=== PATIENT | male | born 2000 | race Caucasian/White ===

== ENCOUNTER 2025-06-10 13:16 | Emergency (ER) | payer SELFPAY ==
--- NOTE | 2025-06-10 13:27 | ED.C_ITS ---
HPI - Psych General: Chief Complaint: Psychiatric Symptoms Stated Complaint: mhe Time Seen by Provider: 06/10/25 13:24 History of Present Illness: 24-year-old man who presents emergency r oom with possible hallucinations. He says things do not sound right or real. He has no SI or HI. He is with a family member who he has come to stay with. No known psychiatric history. He does not take any psychiatric medications. No thoughts of suicide or homicide. Related Data Allergies Allergy/AdvReac Type Severity Reaction Status Date / Time No Known Allergies Allergy Verified 06/10/25 13:30 Review of Systems Narrative: Constitutional symptoms: Negative except as documented in HPI. Skin symptoms: Negative except as documented in HPI. Eye symptoms: Negative except as documented in HPI. ENMT symptoms: Negative except as documented in HPI. Respiratory symptoms: Negative except as documented in HPI. Cardiovascular symptoms: Negative except as documented in HPI. Gastrointestinal symptoms: Negative except as documented in HPI. Genitourinary symptoms: Negative except as documented in HPI. Musculoskeletal symptoms: Negative except as documented in HPI. Neurologic symptoms: Negative except as documented in HPI. Psychiatric symptoms: Negative except as documented in HPI. Endocrine symptoms: Negative except as documented in HPI. Physical Exam Narrative: EXAM NARRATIVE: General: Alert, no acute distress. Skin: Warm, dry. Head: Normocephalic, atraumatic. Neck: Supple, trachea midline. Eye: Extraocular movements are intact. Ears, nose, mouth and throat: mucosa moist. Cardiovascular: Regular, Normal peripheral perfusion. Respiratory: Lungs are clear to auscultation, respirations are non-labored, breath sounds are equal, Symmetrical chest wall expansion. Gastrointestinal: Soft, Nontender, Non distended Musculoskeletal: Normal ROM, no deformity. Neurological: Alert and oriented, No focal neurological deficit observed. Psychiatric: Cooperative, patient does have an odd affect and sometimes has trouble coming up with his words. He does tell me he is hearing things that do not sound real. Course Vital Signs: Vital signs: Vital Signs Temperature 98.1 F 06/10/25 13:28 Pulse Rate 103 H 06/10/25 14:05 Respiratory Rate 18 06/10/25 13:28 Blood Pressure 127/81 06/10/25 14:05 Pulse Oximetry 98 06/10/25 14:05 Oxygen Delivery Me thod Room Air 06/10/25 13:28 MDM - Psych Medical Decision Making Medical decision making Patient's reason for coming to the emergency room: Psychiatric concerns Social determinants: Patient is here with family. Unemployed. I reviewed the patient's medical record. No previous visits to this facility I reviewed the patient's current home meds He says he takes no psychiatric medications Alternate historians: None Differential diagnosis: including but not limited to and based on the above HPI, review of systems and physical exam: Patient is having possible auditory hallucinations. He does not feel that he needs to be admitted. They want to try the crisis center first. Assessment and plan: Possible hallucinations - Discharged home - Discussed plan with patient. Answered any questions. - Evaluation and treatment of this problem were appropriate in the emergency setting. No radiology studies performed this visit Discharge Plan Discharge Patient Disposition: Home Clinical Impression: Auditory hallucinations Condition: Stable Discharge Orders: Discharge ED (Routine); Ordered 06/10/25 Ordered By: Diandra Escobar Patient Instructions: Hallucinations (ED), Opioid Safety, Pain Management, Patient Portal & Walter Instructions Activity Restrictions/Additional Instructions: Please follow-up with the [facility] behavioral health crisis center immediately upon discharge. Phone number is [phone]. There is a 24-hour crisis hotline with the number of [phone]. Hours of operation are 8 AM to 6 PM. If you develop any suicidal or homicidal thoughts please seek medical attention immediately. Thank you for choosing [facility] for your healthcare needs today. Please realize this is an emergency room and that we are providing you with a medical screening exam and this may not be complete and all inclusive of all the testing and or work up that you may need to determine your ailment or severity of your illness. You have been screened and evaluated and felt safe for discharge. Health conditions do change or evolve sometimes and as such it is important that you follow up with your Primary Doctor to be re checked, 3-5 days is a general good time frame for follow up. You are always welcome to return to the ED for re assessment if your symptoms are worsening or you have new concerns Print Language: Korean Coding Level of Care Code ED Wic Site Coordinator for Samson Barraza
[2025-06-10 13:28] VITALS: BP 127/81; PULSE 118; RESP 18; TEMP 36.7; O2SAT 98; BMI 17.6
[2025-06-10 14:05] VITALS: BP 127/81; PULSE 103; O2SAT 98
== END 2025-06-10 14:07 | disposition home or self-care (01) ==
PROVIDERS: Emergency Provider Emergency Medicine
DX: R44.0 Auditory hallucinations (principal)
CPT/HCPCS: 99283

== ENCOUNTER 2025-06-10 17:30 | Inpatient (IN) | payer SELFPAY ==
[2025-06-10 17:33] VITALS: BP 134/88; PULSE 101; RESP 16; TEMP 36.7; O2SAT 98; BMI 17.6
[2025-06-10 18:09] LABS: Hematocrit 43.7 % (37-53); Hemoglobin 15.60 g/dL (11.27-16.99); Mean Corpuscular HGB Conc 35.7 g/dL (30-55); Mean Corpuscular Hemoglobin 30.5 pg (27-33); Mean Corpuscular Volume 85.5 fl (82-101); Nucleated Red Blood Cells % 0 %; Platelet Count 333 10^3/cmm (157-399); Red Blood Count 5.11 10^6/uL (3.85-5.65); White Blood Count 7.72 10^3/uL (3.29-11.43)
[2025-06-10 18:14] LABS: PCP Screen Urine Negative (Negative)
--- NOTE | 2025-06-10 18:32 | PC.NURSE ---
Pt was read his 96 hour rights at this time with security present
[2025-06-10 18:35] LABS: Acetaminophen < 5.0 ug/mL (10-30); Alanine Aminotransferase 18 U/L (0-41); Albumin Level 4.9 g/dL (3.5-5.2); Alcohol Level < 10 mg/dL (0-10); Alkaline Phosphatase 71 U/L (40-130); Anion Gap 18.4 (5-19); Aspartate Amino Transferase 14 U/L (0-40); Blood Urea Nitrogen 9 mg/dL (6-20); Calcium 9.6 mg/dL (8.5-10.5); Carbon Dioxide 21 mmol/L (22-29); Chloride 105 mmol/L (98-107); Globulin 2.4 g/dL (1.3-4.6); Glucose 113 mg/dL (65-115); Osmolality Calculated 291 mOsm/kg (285-295); Potassium 3.4 mmol/L (3.5-5.1); Salicylate < 0.3 mg/dL (3-10); Sodium 141 mmol/L (136-145); Total Protein 7.3 g/dL (6.6-8.7)
[2025-06-10 20:33] VITALS: BP 132/85; PULSE 88; O2SAT 99
--- NOTE | 2025-06-10 21:05 | W.ED.PSYCHS ---
Documented by User: AISHA Noonan 06/11/25 10:39 HPI - Psych General: Chief Complaint: Psychiatric Symptoms Stated Complaint: sent by [place] emergency department Time Seen by Provider: 06/10/25 17:38 Source: patient Mode of arrival: ambulatory Limitations: no limitations History of Present Illness: Patient is a 24-year-old male with no pertinent past medical history who was sent by [facility] for evaluation. He arrives with affidavits and 96-hour hold in place for reports of acute psychosis. He has been seen in the emergency department earlier today where he had been sent down to crisis center for evaluation, he has not been endorsing any SI HI, has been very pleasant and overall no complaints. They sent him back due to him talking to someone down there and reporting the symptoms where he has been essentially hearing voices that have been worsening, he has been sleeping less, and possibly he has been hypomanic. He does not take any medications he does note that he took an antihistamine but overall has never been seen by psychiatrist. This would have been his first visit with any therapist or psychiatrist by going to [facility]. Again he is denying any SI HI at this time, but he is very difficult to examine and get a history from secondary to needing multiple redirects for conversation, appears to be looking at the wall intermittently. He tells me that these auditory hallucinations have been increasing, distracting, and he feels that they are all around him. He does note that this has been increasing for some time. MD complaint: other (Acute psychosis, auditory hallucinations) Associated symptoms: Reports auditory hallucinations; Deny visual hallucinations, homicidal ideation or suicidal ideation Related Data Home Medications ?Medication ?Instructions ?Recorded ?Confirmed No Known Home Medications 06/10/25 06/10/25 Allergies Allergy/AdvReac Type Severity Reaction Status Date / Time Penicillins Allergy Unknown Verified 06/10/25 17:36 Review of Systems General: Reports: 10 or more systems reviewed and unremarkable except in HPI and below Const: Denies: fever(s), chills or fatigue Eyes: Denies: change in vision ENMT: Denies: throat pain, ear or mastoid pain or nasal discharge Card: Denies: chest pain, palpitations, swelling of feet/ankles or lightheadedness Resp: Denies: dyspnea, productive cough or wheezing GI: Denies: abdominal pain, nausea, vomiting, diarrhea or constipation : Denies: flank pain, difficulty urinating, dysuria or urinary frequency Musc: Denies: neck pain, back pain or joint pain Skin/Breast: Denies: rash Neuro: Denies: headache(s), numbness in extremities or weakness in extremities Psych: Reports: auditory hallucinations; Denies: visual hallucinations, tactile hallucinations, suicidal ideation or homicidal ideation Physical Exam Const: COMMON NORMALS: no acute distress, patient oriented x3 and no limitations GENERAL APPEARANCE: cooperative, comfortable and well developed ORIENTATION/CONSCIOUSNESS: Yes awake, Yes oriented to person, Yes oriented to place and Yes oriented to time HENMT: COMMON NORMALS: normocephalic, atraumatic and hearing grossly normal bilaterally HEAD & SCALP: normocephalic and atraumatic Eye: COMMON NORMALS: Equal, round and reactive pupils present, EOMs intact bilaterally and conjunctivae normal CONJUNCTIVA: Yes conjunctivae normal PUPIL: Yes Equal, round and reactive pupils present Resp: COMMON NORMALS: normal respiratory effort, No retractions, No use of accessory muscles and clear to auscultation bilaterally AUSCULTATION: clear to auscultation bilaterally Cardio: COMMON NORMALS: regular rate, regular rhythm, No clicks present (Cardio), No murmurs present (Cardio) and No rub (Cardio) RATE: regular rate RHYTHM: regular rhythm Extremity: COMMON NORMALS: normal to inspection, full ROM and capillary refill normal Neuro: COMMON NORMALS: patient oriented x3, moves all extremities, no focal motor deficits and no sensory deficits noted SENSORIUM/ORIENTATION: Yes oriented to person, Yes oriented to place and Yes oriented to time Psych: COMMON NORMALS: mental status grossly normal THOUGHT CONTENT: Yes Normal thought content present, No Suicidality present, No Homicidality present and Yes Hallucination(s) present auditory OTHER: Requiring multiple redirects to provide history, seems distracted and acknowledging nonexistent stigma Skin: COMMON NORMALS: no rashes or lesions noted GENERAL SKIN EXAM: no rashes or lesions noted Course Vital Signs: Vital signs: Vital Signs Temperature 97.7 F 06/10/25 22:05 Pulse Rate 92 06/11/25 06:00 Respiratory Rate 16 06/11/25 14:00 Blood Pressure 123/85 06/11/25 06:00 Pulse Oximetry 100 06/11/25 06:00 Oxygen Delivery Me thod Room Air 06/11/25 06:00 MDM - Psych Medical Decision Making Patient sent from [facility] with 96-hour paperwork and affidavits present due to symptoms of acute psychosis there, he is interviewed here, he is demonstrating signs of acute psychosis possible hypomania and will admit to neuropsychiatric unit to Dr. Cummings for further evaluation. He is not medicated and has no documented medical history of any psychiatric illness. Patient compliant, Dr. Lane to put in admit orders. Lab Data 06/10/25 17:58 06/10/25 17:58 Laboratory Results WBC 7.72 10^3/uL (3.29-11.43) 06/10/25 17:58 RBC 5.11 10^6/uL (3.85-5.65) 06/10/25 17:58 Hgb 15.60 g/dL (11.27-16.99) 06/10/25 17:58 Hct 43.7 % (37-53) 06/10/25 17:58 MCV 85.5 fl (82-101) 06/10/25 17:58 MCH 30.5 pg (27-33) 06/10/25 17:58 MCHC 35.7 g/dL (30-55) 06/10/25 17:58 RDW 12.1 % (12.1-15.1) 06/10/25 17:58 Plt Count 333 10^3/cmm (157-399) 06/10/25 17:58 MPV 9.4 fL (7.4-10.4) 06/10/25 17:58 Neut % (Auto) 68.3 % 06/10/25 17:58 Lymph % (Auto) 24.9 % 06/10/25 17:58 [place] % (Auto) 5.3 % 06/10/25 17:58 Eos % (Auto) 0.9 % 06/10/25 17:58 Baso % (Auto) 0.3 % 06/10/25 17:58 Neut # (Auto) 5.28 10^3/uL (1.8-7.7) 06/10/25 17:58 Lymph # (Auto) 1.9 10^3/uL (0.8-4.8) 06/10/25 17:58 [place] # (Auto) 0.4 10^3/uL (0.2-0.9) 06/10/25 17:58 Eos # (Auto) 0.1 10^3/uL (0.0-0.8) 06/10/25 17:58 Baso # (Auto) 0.0 10^3/uL (0.0-0.1) 06/10/25 17:58 Nucleated RBC % (auto) 0 % 06/10/25 17:58 Nucleated RBCs # 0.0 /100WBC 06/10/25 17:58 Sodium 141 mmol/L (136-145) 06/10/25 17:58 Potassium 3.4 mmol/L (3.5-5.1) L 06/10/25 17:58 Chloride 105 mmol/L (98-107) 06/10/25 17:58 Carbon Dioxide 21 mmol/L (22-29) L 06/10/25 17:58 Anion Gap 18.4 (5-19) 06/10/25 17:58 BUN 9 mg/dL (6-20) 06/10/25 17:58 Creatinine 0.7 mg/dL (0.7-1.2) 06/10/25 17:58 GFR Calculation 137.4 mL/min (90-130) H 06/10/25 17:58 Glucose 113 mg/dL (65-115) 06/10/25 17:58 Calculated Osmolality 291 mOsm/kg (285-295) 06/10/25 17:58 Calcium 9.6 mg/dL (8.5-10.5) 06/10/25 17:58 Total Bilirubin 0.4 mg/dL (0.15-1.2) 06/10/25 17:58 AST 14 U/L (0-40) 06/10/25 17:58 ALT 18 U/L (0-41) 06/10/25 17:58 Alkaline Phosphatase 71 U/L (40-130) 06/10/25 17:58 Total Protein 7.3 g/dL (6.6-8.7) 06/10/25 17:58 Albumin 4.9 g/dL (3.5-5.2) 06/10/25 17:58 Globulin 2.4 g/dL (1.3-4.6) 06/10/25 17:58 Salicylates < 0.3 mg/dL (3-10) L 06/10/25 17:58 Urine Opiates Screen Negative ng/mL (Negative) 06/10/25 17:49 Acetaminophen < 5.0 ug/mL (10-30) L 06/10/25 17:58 Ur Barbiturates Screen Negative ng/mL (Negative) 06/10/25 17:49 Ur Phencyclidine Scrn Negative ng/mL (Negative) 06/10/25 17:49 Ur Amphetamines Screen Negative ng/mL (Negative) 06/10/25 17:49 U Benzodiazepines Scrn Negative ng/mL (Negative) 06/10/25 17:49 Urine Cocaine Screen Negative ng/mL (Negative) 06/10/25 17:49 U Marijuana (THC) Screen Negative ng/mL (Negative) 06/10/25 17:49 Ethyl Alcohol < 10 mg/dL (0-10) 06/10/25 17:58 No radiology studies performed this visit Discharge Plan Discharge Patient Disposition: Admitted As Inpatient Admit Provider: Umesh Cummings Clinical Impression: Acute psychosis, Acute paranoia Condition: Stable Coding Level of Care Code ED Fermentation Manager for Chg Fwd Documented by User: Mack Lane DO 06/11/25 17:05 HPI - Psych General: Chief Complaint: Psychiatric Symptoms Stated Complaint: sent by [place] emergency department Time Seen by Provider: 06/10/25 17:38 Related Data Home Medications ?Medication ?Instructions ?Recorded ?Confirmed No Known Home Medications 06/10/25 06/10/25 Allergies Allergy/AdvReac Type Severity Reaction Status Date / Time Penicillins Allergy Unknown Verified 06/10/25 17:36 Course Vital Signs: Vital signs: Vital Signs Temperature 97.7 F 06/10/25 22:05 Pulse Rate 92 06/11/25 06:00 Respiratory Rate 16 06/11/25 14:00 Blood Pressure 123/85 06/11/25 06:00 Pulse Oximetry 100 06/11/25 06:00 Oxygen Delivery Me thod Room Air 06/11/25 06:00 MDM - Psych Medical Decision Making Patient sent from [facility] with 96-hour paperwork and affidavits present due to symptoms of acute psychosis there, he is interviewed here, he is demonstrating signs of acute psychosis possible hypomania and will admit to neuropsychiatric unit to Dr. Cummings for further evaluation. He is not medicated and has no documented medical history of any psychiatric illness. Patient compliant, Dr. Lane to put in admit orders. This patient was originally seen by Mr. Ankit PA-C. I agree with his history, evaluation and management. orders are written Lab Data 06/10/25 17:58 06/10/25 17:58 Laboratory Results WBC 7.72 10^3/uL (3.29-11.43) 06/10/25 17:58 RBC 5.11 10^6/uL (3.85-5.65) 06/10/25 17:58 Hgb 15.60 g/dL (11.27-16.99) 06/10/25 17:58 Hct 43.7 % (37-53) 06/10/25 17:58 MCV 85.5 fl (82-101) 06/10/25 17:58 MCH 30.5 pg (27-33) 06/10/25 17:58 MCHC 35.7 g/dL (30-55) 06/10/25 17:58 RDW 12.1 % (12.1-15.1) 06/10/25 17:58 Plt Count 333 10^3/cmm (157-399) 06/10/25 17:58 MPV 9.4 fL (7.4-10.4) 06/10/25 17:58 Neut % (Auto) 68.3 % 06/10/25 17:58 Lymph % (Auto) 24.9 % 06/10/25 17:58 [place] % (Auto) 5.3 % 06/10/25 17:58 Eos % (Auto) 0.9 % 06/10/25 17:58 Baso % (Auto) 0.3 % 06/10/25 17:58 Neut # (Auto) 5.28 10^3/uL (1.8-7.7) 06/10/25 17:58 Lymph # (Auto) 1.9 10^3/uL (0.8-4.8) 06/10/25 17:58 [place] # (Auto) 0.4 10^3/uL (0.2-0.9) 06/10/25 17:58 Eos # (Auto) 0.1 10^3/uL (0.0-0.8) 06/10/25 17:58 Baso # (Auto) 0.0 10^3/uL (0.0-0.1) 06/10/25 17:58 Nucleated RBC % (auto) 0 % 06/10/25 17:58 Nucleated RBCs # 0.0 /100WBC 06/10/25 17:58 Sodium 141 mmol/L (136-145) 06/10/25 17:58 Potassium 3.4 mmol/L (3.5-5.1) L 06/10/25 17:58 Chloride 105 mmol/L (98-107) 06/10/25 17:58 Carbon Dioxide 21 mmol/L (22-29) L 06/10/25 17:58 Anion Gap 18.4 (5-19) 06/10/25 17:58 BUN 9 mg/dL (6-20) 06/10/25 17:58 Creatinine 0.7 mg/dL (0.7-1.2) 06/10/25 17:58 GFR Calculation 137.4 mL/min (90-130) H 06/10/25 17:58 Glucose 113 mg/dL (65-115) 06/10/25 17:58 Calculated Osmolality 291 mOsm/kg (285-295) 06/10/25 17:58 Calcium 9.6 mg/dL (8.5-10.5) 06/10/25 17:58 Total Bilirubin 0.4 mg/dL (0.15-1.2) 06/10/25 17:58 AST 14 U/L (0-40) 06/10/25 17:58 ALT 18 U/L (0-41) 06/10/25 17:58 Alkaline Phosphatase 71 U/L (40-130) 06/10/25 17:58 Total Protein 7.3 g/dL (6.6-8.7) 06/10/25 17:58 Albumin 4.9 g/dL (3.5-5.2) 06/10/25 17:58 Globulin 2.4 g/dL (1.3-4.6) 06/10/25 17:58 Salicylates < 0.3 mg/dL (3-10) L 06/10/25 17:58 Urine Opiates Screen Negative ng/mL (Negative) 06/10/25 17:49 Acetaminophen < 5.0 ug/mL (10-30) L 06/10/25 17:58 Ur Barbiturates Screen Negative ng/mL (Negative) 06/10/25 17:49 Ur Phencyclidine Scrn Negative ng/mL (Negative) 06/10/25 17:49 Ur Amphetamines Screen Negative ng/mL (Negative) 06/10/25 17:49 U Benzodiazepines Scrn Negative ng/mL (Negative) 06/10/25 17:49 Urine Cocaine Screen Negative ng/mL (Negative) 06/10/25 17:49 U Marijuana (THC) Screen Negative ng/mL (Negative) 06/10/25 17:49 Ethyl Alcohol < 10 mg/dL (0-10) 06/10/25 17:58 Discharge Plan Discharge Patient Disposition: Admitted As Inpatient Admit Provider: Umesh Cummings Clinical Impression: Acute psychosis, Acute paranoia Condition: Stable Coding Level of Care Code ED Fermentation Manager for Samson Barraza
[2025-06-10 22:05] VITALS: BP 127/87; PULSE 107; RESP 20; TEMP 36.5; O2SAT 100
--- NOTE | 2025-06-10 22:31 | PC.NURSE ---
Pt had small scars on chest and arms and was very hard to communicate. Finding words and speaking in full sentences seemed very difficult at times. Some acne on chest and back. Pt. arrived to unit at 2146.
--- NOTE | 2025-06-10 22:36 | PC.ADMIT ---
[address] [facility] Admission Note: The patient,Chema Drew,24 y/o, was given written information regarding hospital policies, unit procedures and contact persons. Patient's smoking status: . Vital Signs - 8 hr 06/10/25 17:33 06/10/25 20:33 06/10/25 22:05 Temperature 98.0 F 97.7 F Pulse Rate 101 H 88 107 H Respiratory Rate 16 20 H Blood Pressure 134/88 132/85 127/87 Pulse Oximetry 98 99 100 Oxygen Delivery Method Room Air Pt had small scars on chest and arms and was very hard to communicate. Finding words and speaking in full sentences seemed very difficult at times. Some acne on chest and back. Pt. arrived to unit at 2147.
[2025-06-11 06:00] VITALS: BP 123/85; PULSE 92; RESP 18; O2SAT 100
--- NOTE | 2025-06-11 07:26 | W.CSC.NURCN ---
[facility] Nurse Contact Note Nurse Contact Note Client was referred from ER for auditory hallucinations. Client arrived with both of his parents. He was very anxious and told us his name but then started to get very nervous and started breathing heavily. He was unable to communicate with staff so his mother communicated for him. She stated that he was going through a recent divorce and was having auditory hallucinations (sounds only) and didn't know what was real and what wasn't. Such as his dad loading a tool belt and he thought he was loading a gun. The client was given paperwork to fill out so we could treat him, client sat down in lobby with parents to fill out the paperwork, nurse explained to him that his parents could fill out the paperwork for him and he could just sign then, client refused and stated he would do it and he needed to do it. During filling out paperwork, client started hyperventilating, his mother assisted him with breathing exercises. Nurse received N/O from Dr. Cummings for hydroxyzine 50mg one time and if that didn't work, to administer Ativan 1mg one time. It took 45 minutes for client to fill out paperwork because he was unable to focus. After placing client in a room, nurse went to administer hydroxyzine and explained to client that this would help calm his nerves where he would be able to communicate with us better so we could help him. Client was very hesitant about taking any medication, he couldn't elaborate his reasoning for not wanting to take anything, he just continued to take deep breaths, while rocking back and forth and running his hands along side his thighs. Nurse explained to client that this was the lowest form of medication we had for anxiety and it was classified as an antihistamine but it does also assist in aiding anxiety. Client took the medication 15 minutes later. Client was given water and snacks while the QMHP from [facility] visited with client, with parents in room. Nurse and QMHP called Dr. Cummings and explained all the symptoms and how ER had referred client to us, he asked why ER didn't send him to [facility] because there were plenty of beds. Nurse explained that he didn't have SI/HI. Mom had reported to nurse and QMHP that the ER doc told them that they didn't specialize in mental health which is why they were sending them to us at [facility]. Dr. Cummings stated that we needed to send him back to ER to be medically cleared so he could go to [facility] and if client was hesitant on going, to start the 96HH process. After speaking with client, he did not want to be admitted inpatient because he wanted his parents with him at all times. Spoke with parents, they stated that since this was the psychiatrists recommendation then that's what we should do. [facility] started 96HH process. Nurse called report to the ER and spoke Laura and notified security. Everyone was on board that client's parents should take him to the ER and the heel cover softener department could serve him there, since he wasn't an immediate threat to himself or others. ER had a triage room ready for him and parents escorted him to ER. Nurse verified with heel cover softener department that they received the return agent airport's signed 96HH, they stated they were sending dispatch to the ER now, nurse notified security that they were on their way.
--- NOTE | 2025-06-11 09:48 | PC.NURSE ---
Patient is a poor historian. Assessment attempted, patient is resistive to assessment. Noted word finding difficulty with assessment. Patient appears to be responding to internal stimuli. Patient passively stated to another patient you're a hippopotamus and water. When asked patient about moving to the area he reports that he has been here for a couple of years and and this was due to confliction due to historical kind of . Patient has numerous self inflicted healed scars to BUE. He has a fine tremor noted to BUE. Offered patient medication for reported back pain and anxiety. Patient declined. He asked this RN where are my belongings? I'm ready to be discharged. Patient advised that the physician would be the one that has to discharge him.
[2025-06-11] MEDS: artificial tears Op Soln 15 mL Btl 1 DROP EYE-BOTH (09:58)
--- NOTE | 2025-06-11 10:21 | PC.NURSE ---
Patient with significant anxiety and psychosis observed. He is sitting on his bed reading the involuntary handbook loudly. He has a anxious and bewildered affect. He still appears to be responding to internal and external stimuli. Haldol 5 mg po and Vistaril 50 mg po given for this.
[2025-06-11 14:00] VITALS: RESP 16
--- NOTE | 2025-06-11 15:00 | PC.NURSE ---
Pt will present to nurses station to ask for items such as sandwiches / nicotine lozenges and when given items, pt will state Ummm I don't know what to do with these . Pt was asked if he really wanted things or if he was asking for things because he heard other pts asking for them. Pt stated Yea Um I don't know I am just trying to follow directions . Pt was educated that he did not need to ask for things if he did not want them. Pt does not seem to be able to focus on conversations and laughs inappropriately at random times when conversing w/ staff.
--- NOTE | 2025-06-11 16:26 | PC.NURSE ---
pt mother, father, and brother came to visit pt, they told the blurb writer that this is new behavior. pt would be up for 36+ hours they said that pt finally was able to sleep for 4 to 6 hours and he was back to him self. family did state that pt had got a divorce in the state of [place], it took 2 years. pt has be living with family for 2 years. they felt that pt need to be seen so they brought chandlerim to ER and then ER sent him to crisis to get evaluated and the crisis sent him back to ER and then was admitted to the Unit. this blurb writer did tell this family that he was save and that we would take care of him. all parties were tearful when they seen pt. this blurb writer and another staff member asked if they knew if pt had taken any medications or drugs, they stated that pt while living with them as far as they new that he had not taken or did any drugs. but did smoke and quit cold turkey. they told this blurb writer that pt had smoke weed in the past and didnt like the way it made him feel and never touched it as far as they knew. pt did put his mom, his dad, his brother, and his ex on his contact list.
--- NOTE | 2025-06-11 16:32 | PC.NURSE ---
Pt appears agitated / upset after visit w/ family members. Pt stomped up to nurses station and said I need to speak with doctor Yong about discharge as soon as possible . Pt also was filling out the HIPPA form and becoming visibly frustrated / upset and muttering to himself something along the lines of I can't find the fucking numbers.. . Pt is now fast pacing up and down the hallway.
--- NOTE | 2025-06-11 17:26 | P.NPUHP_ITS ---
Providers/Chief Complaint 2 Admitting Physician: Umesh Cummings MD Chief Complaint: sent by [facility] HPI NPU History of Present Illness Chema Drew is a 24 year old male who presented to the emergency department after first being evaluated at the [facility] with concerns about having problems with auditory hallucinations. The patient was admitted to the neuropsychiatric unit for further evaluation and treatment. The patient reports that he is having problems with hearing noises in his head. He reports that they are distracting to him. He reports that he has had problems with concentration and has had difficulties with falling asleep and staying asleep. He reports that he has had periods of time where he did not not sleep for several days. He had reported a past history of suicidal ideation but denies this at this time. He was appearing quite sedated and was unable to provide any further meaningful history regarding why he had been here in the hospital. He did deny having any current thoughts of hurting himself or others. He had reported that he had been feeling more anxious and stated that he was distracted by his thoughts. He had denied any drug or alcohol use. The patient's urine drug screen was negative For drugs of abuse or alcohol. He had acknowledged that he had been having some problems with feeling as if others were possibly trying to harm him as he had stated that he had a perception that others could somehow read his mind. He had reported that his dad had been loading a tool belt and the patient had thought that it was not a tool belt but was a loaded gun. He had reported that he had felt that he might be in danger of being harmed by others. Inpatient psychiatric history: None reported Outpatient psychiatric history: He had reported a prior history of having received psychotherapy while in high school. Substance abuse history: None reported Medical history: None Surgical history: None Allergies: No known drug allergies Medications: None Legal history: None History: None Family Psychiatric history: Maternal grandparents had some unspecified history of mental illness Social History: The patient stated he was both born in [place] and has an older brother. He had denied any prior history of sexual physical or emotional abuse. He reports that he currently lives with his biological parents. He had reported having previously been but states that he is going through a divorce. He has no children. He had reported having completed high school and reported no current employment. Meds NPU Home Medications ?Medication ?Instructions ?Recorded ?Confirmed ?Last Taken ?Type No Known Home Medications 06/10/2505/29 Unknown History Allergies Allergy/AdvReac Type Severity Reaction Status Date / Time Penicillins Allergy Unknown Verified 06/10/25 17:36 Mental Status Exam 2 MSE Comments: Patient was a healthy male who appeared in no acute distress. His gait appeared within normal limits. His hygiene was poor. There was no evidence of any abnormal involuntary motor movements, tics, or tremors appreciated. His speech showed significant increase in latency with decreased volume and near halting speech. His mood was described as okay. His affect was blunted. His thought process was linear at times. His thought content revealed no suicidal or homicidal ideation. He did at times appear to be responding to internal stimuli as he repeatedly stared at the esposito. There was some paranoia noted. He had endorsed having a belief of thought broadcasting. His attention span was impaired. He was alert and oriented to person and place and time. His insight appeared impaired. His judgment appeared poor. His impulse control appeared limited. Vitals/I&O/Wt Last Vital Signs Temp 97.7 F 06/10/25 22:05 Pulse 92 06/11/25 06:00 Resp 16 06/11/25 14:00 BP 123/85 06/11/25 06:00 Pulse Ox 100 06/11/25 06:00 O2 Del Method Room Air 06/11/25 06:00 Weight last 48 hrs Weight 58.967 kg Weight 58.967 kg Data NPU 06/10/25 17:58 06/10/25 17:58 A&P Assessment and plan 1. Acute psychosis: 2. Auditory hallucinations: Plan: The patient is a 24-year-old male who presents with evidence of psychosis with possible evidence of a manic episode with reports of decreased sleep currently on an involuntary hold. #1.? Engage patient in individual milieu and group therapy.? #2.?? TO-15 minute checks? #3?? Will attempt to gather collateral information, particularly from family members. #4. Continue to monitor under an invountary hold with patient likely to benefit from antipsychotic medications. PDMP PDMP Reviewed: Not Reviewed Involuntary Hold Information 2 Hold Status: Legal Status: 96 Hour Hold Date/Time Hold Expires: 1 08/17/20@0001 Attestations NPU 2 Medical Necessity Statement*: Inpatient hospitalization is medically necessary and deemed to be the clinically appropriate intervention at this time. Medications will be initiated and adjusted accordingly.? The patient will be hospitalized for at least two midnights.? The patient?s likely length of stay is 4-6 days.? Coding Level of Care Code Acute Code for Chg Fwd Diagnoses Acute psychosis F23 Auditory hallucinations R44.0
--- NOTE | 2025-06-11 18:50 | PC.NURSE ---
pt was just up at nurse station went to south door that goes to [facility] and pushed on it with his shoulder. this engineering technical writer told pt that it was locked and did not open. pt stated i know . pt went toward pt phone and then turned around and went down monique to pt room.
--- NOTE | 2025-06-11 19:40 | PC.NURSE ---
pt assessment this nurse spoke with patient regarding his 96 hour hold. pt states he is not hearing voices or seeing things. pt states he wants to speak to the physician because is ready to go home. this nurse had a long discussion about when the physician would be back and the probable course of action regarding his stay here.
[2025-06-11 20:36] VITALS: BP 112/55; PULSE 79; RESP 17; TEMP 36.8; O2SAT 98
[2025-06-12 06:00] VITALS: RESP 16
--- NOTE | 2025-06-12 06:34 | PC.NURSE ---
vs not completed pt sleeping soundly nurse notified resp 16
[2025-06-12 14:00] VITALS: BP 127/88; PULSE 149; RESP 20; TEMP 37.3; O2SAT 97
--- NOTE | 2025-06-12 16:51 | PC.NURSE ---
Pt. went back and forth on if he would take the medication prescribed. After finally deciding he would not. Pt.'s father called and spoke to him and pt. then agreed and did take the Abilify.
--- NOTE | 2025-06-12 17:12 | P.NPUPN_ITS ---
Subjective NPU 2 Subjective: 24-year-old male admitted with psychosis that had been apparent over the past month currently involuntarily placed on the neuropsychiatric unit. Patient had continued to insist that he be discharged. He had reported that he had slept better after receiving trazodone overnight. He had continued to report that he did not wish to have any medications but did not provide any additional information as to why he did not need medications despite acknowledging that his thoughts had been less clear. He continued to report that he was feeling much better and wished to go home. He had continued to isolate himself on the milieu. The patient's mother had spoken to this clinical writer and had reported that the patient was having significant problems over the past month and particularly appeared worse over the past few weeks with the patient misinterpreting cues and believing that his father was loading a gun with bullets when he was adjusting his tool belt. Mental Status Exam 2 MSE Comments: Patient was a healthy male who appeared in no acute distress. His gait appeared within normal limits. His hygiene was poor. There was no evidence of any abnormal involuntary motor movements, tics appreciated although he reported a tremor. His speech showed significant increase in latency with normal volume. His mood was described as fine. His affect was subdued and mood incongruent. His thought process was linear but superficial at this time. His thought content revealed no suicidal or homicidal ideation. He did at times appear to be responding to internal stimuli as he continued to stare at the wall. There was paranoia noted. He had endorsed having a belief of thought broadcasting. His attention span was impaired. He was alert and oriented to person and place and time. His insight appeared impaired. His judgment appeared poor. His impulse control appeared limited. Vitals/I&O/Wt Last Vital Signs Temp 99.1 F 06/12/25 14:00 Pulse 149 H 06/12/25 14:00 Resp 20 H 06/12/25 14:00 BP 127/88 06/12/25 14:00 Pulse Ox 97 06/12/25 14:00 O2 Del Method Room Air 06/12/25 14:00 06/12/25 06/12/25 06/12/25 06:59 14:59 22:59 Intake Total 240 / 240 Balance 240 / 240 Weight last 48 hrs Weight 58.967 kg Weight 58.967 kg Data NPU 06/10/25 17:58 06/10/25 17:58 A&P Assessment and plan 1. Acute psychosis: 2. Auditory hallucinations: Plan: The patient is a 24-year-old male who presents with evidence of psychosis with possible evidence of a manic episode with reports of decreased sleep currently on an involuntary hold. #1.? Engage patient in individual milieu and group therapy.? #2.?? TO-15 minute checks? #3?? Will attempt to gather collateral information, particularly from family members. #4. Continue to monitor under an invountary hold with patient likely to benefit from antipsychotic medications. Patient agreeable to trial of abilify. PDMP PDMP Reviewed: Not Reviewed Involuntary Hold Information 2 Hold Status: Legal Status: 96 Hour Hold Date/Time Hold Expires: 06/16/25 @ 00:01 Attestations NPU 2 Medical Necessity Statement*: Inpatient hospitalization is medically necessary and deemed to be the clinically appropriate intervention at this time. Medications will be initiated and adjusted accordingly.?The patient?s likely length of stay is 5-7 days.? Coding Level of Care Code Acute Code for Chg Fwd Diagnoses Acute psychosis F23 Auditory hallucinations R44.0
[2025-06-12 19:58] VITALS: BP 119/74; PULSE 95; RESP 16; TEMP 37.1; O2SAT 98
[2025-06-13 06:00] VITALS: BP 121/67; PULSE 95; RESP 16; TEMP 36.9; O2SAT 97
[2025-06-13 14:00] VITALS: BP 119/81; PULSE 97; RESP 16; TEMP 36.8; O2SAT 98
[2025-06-13] MEDS: blistex lip oint 7 gm Tube 1 APPLIC TOPICAL (15:30)
--- NOTE | 2025-06-13 17:37 | P.NPUPN_ITS ---
Subjective NPU 2 Subjective: 24-year-old male admitted with psychosis that had been apparent over the past month currently involuntarily placed on the neuropsychiatric unit. Patient appeared much improved. He had reported that his thoughts had been clearer and reported that he had slept better with just the addition of Abilify. He had reported that his thoughts appeared less clustered. He reported a good visit with his family. He had acknowledged having a history of problems with sleep disturbance for several days while not requiring much sleep and reporting ideas of thought broadcasting even in the distant past that apparently had resolved without the use of medication. He had reported no suicidal thoughts at this time. He reports that his mind was clear and reported that his thoughts were more focused. He had reported no particular side effects from his Abilify. Staff notes the patient appeared more engageable and did not appear to have as much paranoia or distrust of others. He had made no attempts to elope today. Mental Status Exam 2 MSE Comments: Patient was a healthy male who appeared in no acute distress. His gait appeared within normal limits. His hygiene was fair. There was no evidence of any abnormal involuntary motor movements tics or tremors appreciated. His mood was described as better. His affect appeared brighter. His thought process was linear logical and goal-directed. His speech was fluent with normal rate rhythm and prosody today. His speech latency was normal. His his thought content revealed no suicidal or homicidal ideation. There was no evidence of any delusional thinking. He did not appear to be responding to internal stimuli. His attention span appeared improved. He was alert and oriented to person place time and situation. His insight appeared fair. His judgment was fair. His impulse control appeared adequate. Vitals/I&O/Wt Last Vital Signs Temp 98.3 F 06/13/25 14:00 Pulse 97 06/13/25 14:00 Resp 16 06/13/25 14:00 BP 119/81 06/13/25 14:00 Pulse Ox 98 06/13/25 14:00 O2 Del Method Room Air 06/13/25 14:00 Data NPU 06/10/25 17:58 06/10/25 17:58 A&P Assessment and plan 1. Acute psychosis: 2. Auditory hallucinations: Plan: The patient is a 24-year-old male who presents with evidence of psychosis with possible evidence of a manic episode with reports of decreased sleep currently on an involuntary hold. #1.? Engage patient in individual milieu and group therapy.? #2.?? TO-15 minute checks? #3?? Will attempt to gather collateral information, particularly from family members. #4. Increase abilify to 15mg today. Patient appears much improved and given current trajectory, he may be discharged soon. PDMP PDMP Reviewed: Not Reviewed Involuntary Hold Information 2 Hold Status: Legal Status: 96 Hour Hold Date/Time Hold Expires: 06/16/25 @ 00:01 Attestations NPU 2 Medical Necessity Statement*: Inpatient hospitalization is medically necessary and deemed to be the clinically appropriate intervention at this time. Medications will be initiated and adjusted accordingly.?The patient?s likely length of stay is 2-3 days.? Coding Level of Care Code Acute Code for Chg Fwd Diagnoses Acute psychosis F23 Auditory hallucinations R44.0
[2025-06-13 21:46] VITALS: BP 125/73; PULSE 98; RESP 18; TEMP 36.8; O2SAT 97
[2025-06-14 06:00] VITALS: BP 109/72; PULSE 89; RESP 16; TEMP 36.6; O2SAT 98
--- NOTE | 2025-06-14 13:40 | P.NPUDS_ITS ---
Diagnoses at Discharge Discharge Diagnosis 1. Acute psychosis: 2. Auditory hallucinations: Reason for Visit Reason for Visit: sent by [facility] Brief History: History of Present Illness Chema Drew is a 24 year old male who presented to the emergency department after first being evaluated at the [facility] with concerns about having problems with auditory hallucinations. The patient was admitted to the neuropsychiatric unit for further evaluation and treatment. The patient reports that he is having problems with hearing noises in his head. He reports that they are distracting to him. He reports that he has had problems with concentration and has had difficulties with falling asleep and staying asleep. He reports that he has had periods of time where he did not not sleep for several days. He had reported a past history of suicidal ideation but denies this at this time. He was appearing quite sedated and was unable to provide any further meaningful history regarding why he had been here in the hospital. He did deny having any current thoughts of hurting himself or others. He had reported that he had been feeling more anxious and stated that he was distracted by his thoughts. He had denied any drug or alcohol use. The patient's urine drug screen was negative For drugs of abuse or alcohol. He had acknowledged that he had been having some problems with feeling as if others were possibly trying to harm him as he had stated that he had a perception that others could somehow read his mind. He had reported that his dad had been loading a tool belt and the patient had thought that it was not a tool belt but was a loaded gun. He had reported that he had felt that he might be in danger of being harmed by others. Inpatient psychiatric history: None reported Outpatient psychiatric history: He had reported a prior history of having received psychotherapy while in high school. Substance abuse history: None reported Medical history: None Surgical history: None Allergies: No known drug allergies Medications: None Legal history: None History: None Family Psychiatric history: Maternal grandparents had some unspecified history of mental illness Social History: The patient stated he was both born in [place] and has an older brother. He had denied any prior history of sexual physical or emotional abuse. He reports that he currently lives with his biological parents. He had reported having previously been but states that he is going through a divorce. He has no children. He had reported having completed high school and reported no current employment. Hospital Course Hospital Course During the hospitalization, the patient had routine laboratory studies which we re within normal limits except for a few outliers.? Additionally, there was a general medical evaluation which was also within normal limits and revealed no new acute processes.? The patient presented to the unit quite psychotic with difficulties with thought blocking and appearing to be responding to internal stimuli while reporting having a flood of thoughts. Abilify was started and titrated up to a dose of 15 mg with a rapid improvement noted in regards to his thought process and significant improvement in regards to his increase in speech latency. At the time of discharge, lethality was denied and psychosis was resolving.? Mood and anxiety were well managed.? The patient endorsed a plan to avoid all drugs of abuse and follow up with the aftercare recommendations of the treatment team.? The patient was evaluated and deemed to be absent credible lethality and had achieved the maximum benefit from an inpatient hospitalization, and so was discharged.? Involuntary Hold Information Hold Status: Legal Status: 96 Hour Hold Date/Time Hold Expires: 06/16/25 @ 00:01 Mental Status Exam MSE Comments: Patient was a healthy male who appeared in no acute distress. His gait appeared within normal limits. His hygiene was fair. There was no evidence of any abnormal involuntary motor movements tics or tremors appreciated. His mood was described as better. His affect appeared brighter. His thought process was linear logical and goal-directed. His speech was fluent with normal rate rhythm and prosody today. His speech latency was normal. His his thought content revealed no suicidal or homicidal ideation. There was no evidence of any delusional thinking. He did not appear to be responding to internal stimuli. His attention span appeared improved. He was alert and oriented to person place time and situation. His insight appeared fair. His judgment was fair. His impulse control appeared adequate. Discharge Data Studies Completed and Pending: Laboratory Results WBC 7.72 10^3/uL (3.2 9-11.43) 06/10/25 17:58 RBC 5.11 10^6/uL (3.8 5-5.65) 06/10/25 17:58 Hgb 15.60 g/dL (11.27 -16.99) 06/10/25 17:58 Hct 43.7 % (37-53) 06/10/25 17:58 MCV 85.5 fl (82-101) 06/10/25 17:58 MCH 30.5 pg (27-33) 06/10/25 17:58 MCHC 35.7 g/dL (30-55) 06/10/25 17:58 RDW 12.1 % (12.1-15.1 ) 06/10/25 17:58 Plt Count 333 10^3/cmm (157 -399) 06/10/25 17:58 MPV 9.4 fL (7.4-10.4) 06/10/25 17:58 Neut % (Auto) 68.3 % 06/10/25 17:58 Lymph % (Auto) 24.9 % 06/10/25 17:58 [place] % (Auto) 5.3 % 06/10/25 17:58 Eos % (Auto) 0.9 % 06/10/25 17:58 Baso % (Auto) 0.3 % 06/10/25 17:58 Neut # (Auto) 5.28 10^3/uL (1.8 -7.7) 06/10/25 17:58 Lymph # (Auto) 1.9 10^3/uL (0.8- 4.8) 06/10/25 17:58 [place] # (Auto) 0.4 10^3/uL (0.2- 0.9) 06/10/25 17:58 Eos # (Auto) 0.1 10^3/uL (0.0- 0.8) 06/10/25 17:58 Baso # (Auto) 0.0 10^3/uL (0.0- 0.1) 06/10/25 17:58 Nucleated RBC % (a uto) 0 % 06/10/25 17:58 Nucleated RBCs # 0.0 /100WBC 06/10/25 17:58 Sodium 141 mmol/L (136-1 45) 06/10/25 17:58 Potassium 3.4 mmol/L (3.5-5 .1) L 06/10/25 17:58 Chloride 105 mmol/L (98-10 7) 06/10/25 17:58 Carbon Dioxide 21 mmol/L (22-29) L 06/10/25 17:58 Anion Gap 18.4 (5-19) 06/10/25 17:58 BUN 9 mg/dL (6-20) 06/10/25 17:58 Creatinine 0.7 mg/dL (0.7-1. 2) 06/10/25 17:58 GFR Calculation 137.4 mL/min (90- 130) H 06/10/25 17:58 Glucose 113 mg/dL (65-115 ) 06/10/25 17:58 Calculated Osmolal ity 291 mOsm/kg (285- 295) 06/10/25 17:58 Calcium 9.6 mg/dL (8.5-10 .5) 06/10/25 17:58 Total Bilirubin 0.4 mg/dL (0.15-1 .2) 06/10/25 17:58 AST 14 U/L (0-40) 06/10/25 17:58 ALT 18 U/L (0-41) 06/10/25 17:58 Alkaline Phosphata se 71 U/L (40-130) 06/10/25 17:58 Total Protein 7.3 g/dL (6.6-8.7 ) 06/10/25 17:58 Albumin 4.9 g/dL (3.5-5.2 ) 06/10/25 17:58 Globulin 2.4 g/dL (1.3-4.6 ) 06/10/25 17:58 Salicylates < 0.3 mg/dL (3-10 ) L 06/10/25 17:58 Urine Opiates Scre en Negative ng/mL (N egative) 06/10/25 17:49 Acetaminophen < 5.0 ug/mL (10-3 0) L 06/10/25 17:58 Ur Barbiturates Sc reen Negative ng/mL (N egative) 06/10/25 17:49 Ur Phencyclidine S crn Negative ng/mL (N egative) 06/10/25 17:49 Ur Amphetamines Sc reen Negative ng/mL (N egative) 06/10/25 17:49 U Benzodiazepines Scrn Negative ng/mL (N egative) 06/10/25 17:49 Urine Cocaine Scre en Negative ng/mL (N egative) 06/10/25 17:49 U Marijuana (THC) Screen Negative ng/mL (N egative) 06/10/25 17:49 Ethyl Alcohol < 10 mg/dL (0-10) 06/10/25 17:58 Vitals: Last Vital Signs Temp 97.8 F 06/14/25 06:00 Pulse 89 06/14/25 06:00 Resp 16 06/14/25 06:00 BP 109/72 06/14/25 06:00 Pulse Ox 98 06/14/25 06:00 O2 Del Method Room Air 06/14/25 06:00 Discharge Plan Discharge Patient Disposition: Home Condition: Stable Prescriptions: New aripiprazole 10 mg Tablet 15 mg PO DAILY 30 Days Qty: 45 1RF Discharge Order = DC NOW: Discharge Order (Routine); Ordered 06/14/25 Ordered By: [place] Referrals: [facility] [Outside] - 06/16/25 8:30 am Referral Note: Assessment appointment with Nidia Seay with 8:30 am check in. Socrates Zabala MD [Physician, Family Practice] - 07/05/25 9:00 am Referral Note: Establish care. Discharge Diet: Usual diet Discharge Activity: Resume usual activity Patient Instructions: Aripiprazole (By mouth), Brief Psychotic Disorder (DC), Hallucinations (DC), Opioid Safety, Patient Portal & Walter Instructions Discharge Attestations NPU Time Spent in Discharge Care*: less than 30 min Specific Discharge Activities: Specific discharge activities: educating patient, discussing with case sealer/social workers/dc planners and documenting/other paperwork Coding Level of Care Code Acute Code for Chg Fwd Diagnoses Acute psychosis F23 Auditory hallucinations R44.0
[2025-06-14 14:00] VITALS: BP 115/64; PULSE 100; RESP 18; TEMP 36.6; O2SAT 96
[2025-06-14 14:15] VITALS: BP 115/64; PULSE 100; RESP 18; TEMP 36.6; O2SAT 96
== END 2025-06-14 15:15 | disposition home or self-care (01) | DRG 885 ==
LOC: ER 19:08 → NP 20:32
PROVIDERS: Admitting Provider Psychiatry & Neurology Psychiatry; Emergency Provider Physician Assistant; Visit Provider Psychiatry & Neurology Psychiatry
DX: F23 Brief psychotic disorder (principal); Z88.0 Allergy status to penicillin
CPT/HCPCS: 36415; 80053; 80306; 80307; 85025; 97150; 97165; 99285; J9999